=== PATIENT | male | born 1955 | race Caucasian/White ===

== ENCOUNTER 2024-02-11 09:19 | Outpatient (CLI) | payer MEDICARE, SELFPAY ==
--- NOTE | ~2024-02-11 | XR_ITS ---
3 VIEWS LUMBAR SPINE Ordering provider: Kiki Reyes NP History: . M54.41 - Lumbago with sciatica, right side . Comparison: None. FINDINGS: VERTEBRAL BODIES: No visible fracture or subluxation. Mild degenerative changes. DISK SPACES: Normal. SOFT TISSUES: Atherosclerotic changes of the aorta. IMPRESSION: No acute osseous abnormality lumbar spine. Reviewed, dictated and finalized at location A. 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
== END 2024-02-11 09:20 | disposition home or self-care (01) ==
LOC: GOSHIMG 09:19
PROVIDERS: PCP Internal Medicine; Visit Provider Nurse Practitioner
DX: M54.41 Lumbago with sciatica, right side (principal)
CPT/HCPCS: 72100

== ENCOUNTER 2024-02-15 13:15 | Emergency (ER) | payer MEDICARE, SELFPAY ==
--- NOTE | ~2024-02-15 | CT_ITS ---
EXAMINATION: CT lumbar spine wo con DATE: 02/15/2024 14:54 INDICATION: R SI pain, mild limbar pain . TECHNIQUE: Computed tomography (CT) of the lumbar spine was performed without intravenous contrast. A utomated exposure control and iterative reconstruction technique were employed. The dose-length produ ct was 677.97 mGy-cm. COMPARISON: X-ray L-spine 02/11/2024. FINDINGS: 5 nonrib-bearing lumbar-type vertebral bodies. Pedicles intact. Normal vertebral body align ment. Vertebral body heights preserved. Multilevel mild degenerative disc disease. Multilevel moderat e facet arthropathy. No severe central canal or neural foraminal narrowing. Atherosclerotic calcifica tions. Mild fusiform aneurysmal dilation of the abdominal aorta measuring up to 3.1 cm. Prostatomegal y with likely chronic urinary bladder wall thickening. Simple left renal cyst. IMPRESSION: No acute fracture or traumatic malalignment in the lumbar spine. Reviewed, dictated and finalized at location K. 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
[2024-02-15 13:24] VITALS: BP 147/84; PULSE 63; RESP 17; TEMP 36.5; O2SAT 99
--- NOTE | 2024-02-15 14:28 | ED_ITS ---
HPI - Back Pain/Injury General Chief Complaint: Back Pain/Injury Stated Complaint: back pain Time Seen by Provider: 02/15/24 14:04 History of Present Illness HPI Narrative: 69 y/o male presents to the emergency department for back pain for 5 weeks. Patient states 5 weeks ago he was doing yd work and getting in and out of the lawnmower several times. He felt pain in his low back in the right side of his back which is been persistent. states the pain is sharp and radiates down the right leg. He saw his PCP and lumbar x-rays performed which were unremarkable. He was given steroids which he states improved his pain significantly, however on the course of steroids was finished his pain returned. He has been using ice with some relief. States today while he was icing the area he sneezed his pain significantly worsened which caused him to come to the ED today. He denies bow el or bladder incontinence, urinary tension, fevers, abdominal pain, dysuria. has a history of hyperlipidemia. Related Data Allergies Allergy/AdvReac Type Severity Reaction Status Date / Time No Known Allergies Allergy Verified 02/04/24 14:25 Review of Systems Review of Systems: All systems reviewed & are unremarkable except as noted in HPI and below PMFSH Surgical History Surgical History H/O arthroscopy Right knee Family History Family History Grandparent Diabetes mellitus Social History Social History Social History: Caffeine- 2 sodas daily Smoking status: Never smoker Alcohol intake: current Drinks per week: 1 Alcohol use details: occasionally Substance use: never Lack of Transportation: No Lack of Food: Never True Current Housing: I Have Housing Concerned About Future Housing: No Difficulty Paying Gas/Electric Bills: No Difficulty Paying for Meds: No Currently Unemployed: No Education: High School Diploma/GED Difficulty w/ Childcare or Family Care: No Exam Narrative: GENERAL: Well-appearing, well-nourished, and in no acute distress. HEAD: Normocephalic, atraumatic. EYES: EOMI. ENT: Nares clear, no rhinorrhea or epistaxis. Mucous membranes moist. NECK: Supple. BACK: No significant thoracolumbar spinous tenderness to palpation no crepitus, step-offs or deformities, overlying skin changes. Point tenderness over the right SI with no overlying skin changes or crepitus. No tenderness over the piriformis. Positive straight leg raise. Sensation intact throughout. No saddle anesthesia. DP pulse 2 +. Full active and passive range of motion of leg without difficulty. Patient is ambulatory. CHEST: Clear to auscultation. No respiratory distress. HEART: Regular rate and rhythm. No murmur heard. Normal peripheral pulses. ABDOMEN: Soft, nontender, nondistended, normal active bowel sounds. EXTREMITIES: Normal range of motion. No edema. SKIN: Warm, dry, no rash. NEURO: No focal deficits. Alert and oriented x3 Course Vital Signs Vital signs: Vital Signs Temperature 97.7 F 02/15/24 13:24 Pulse Rate 63 02/15/24 13:24 Respiratory Rate 17 02/15/24 13:24 Blood Pressure 147/84 H 02/15/24 13:24 Pulse Oximetry 99 02/15/24 13:24 Temperature 97.7 F 02/15/24 13:24 Pulse Rate 63 02/15/24 13:24 Respiratory Rate 17 02/15/24 13:24 Blood Pressure 147/84 H 02/15/24 13:24 Pulse Oximetry 99 02/15/24 13:24 MDM - Back Pain/Injury MDM Narrative Medical decision making narrative: 69-year-old male with history of hyperlipidemia presents to emergency department for right low back pain with radiculopathy for the past 5 weeks of treatment yd work. See HPI for further history. Vitals are stable other than elevated blood pressure. He is afebrile and nontoxic appearing. Exam is significant for point tenderness over the right SI positive straight leg raise. He is neurovascularly intact without signs significant cord compression or cauda equina. CT lumbar shows no acute fracture traumatic malalignment in the lumbar spine, incidentally found a mild fusiform aneurysmal dilation of the abdominal aorta measuring 3.1 cm. Patient updated on workup. He received IM Decadron, Lidoderm patch, Flexeril and Tylenol with some improvement. Will provide these medications to the pharmacy encouraged close follow-up with his PCP. Advised him to continue his course of PT. Discussed strict ED return precautions. He is agreeable to plan verbalized understanding. Discharged in stable condition. Discharge Plan Discharge Clinical Impression: Acute lumbar radiculopathy AAA (abdominal aortic aneurysm) Qualifiers: Abdominal aorta location: unspecified Presence of rupture: without rupture Qualified Code(s): I71.40 - Abdominal aortic aneurysm, without rupture, unspecified Patient Disposition: Home, Self-Care Condition: Stable Instructions: Antibiotic Form, Nonruptured Abdominal Aortic Aneurysm (DC), Acute Low Back Pain (ED), Lumbar Radiculopathy (ED), Lower Back Exercises (ED) Additional Instructions: You were evaluated in the emergency department for back pain. The CT scan shows no acute findings to explain his back pain. Incidentally does reveal a dilated abdominal aorta as discussed. Please follow-up with her PCP regarding this. Please stay mobile and follow-up with her PCP regarding your back pain and PT. He has a medications as directed. Return to the emergency department if you develop fever, abdominal pain, numbness in her groin, lose control of her bowel or bladder, or other concerning symptoms. Prescriptions: New cyclobenzaprine 10 mg tablet 10 mg PO TID PRN (Reason: muscle spasm) Qty: 14 0RF lidocaine 5 % adhesive patch,medicated 1 patch topical DAILY Qty: 15 0RF Rx Instructions: leave on most painful area for up to 12 hrs. do not use more than 1 patch in a 24-hour period. methylprednisolone [Medrol (Eduard)] 4 mg tablets,dose pack See Rx Instructions PO .COMPLEX Qty: 21 0RF Rx Instructions: orally per package directions acetaminophen 500 mg capsule 1,000 mg PO Q6H PRN (Reason: pain) Qty: 30 0RF No Action methylprednisolone [Medrol (Eduard)] 4 mg tablets,dose pack See Rx Instructions PO PER PKG DIR Qty: 21 0RF Rx Instructions: PO PER PKG DIR atorvastatin 10 mg tablet 10 mg PO QHS Qty: 90 3RF Follow-up/Referrals: Romeo Lanza DO [Primary Care Provider] -
[2024-02-15] MEDS: dexAMETHasone SOD PHOS INJ 10 MG/ML 1 ML VIAL IM (15:06)
[2024-02-15] MEDS: LIDOCAINE 5% PATCH 1 PATCH TRANSDERM (15:06)
[2024-02-15] MEDS: ACETAMINOPHEN 500 MG TABLET 1000 MG PO (15:07)
[2024-02-15] MEDS: CYCLOBENZAPRINE HCL 10 MG TABLET PO (15:07)
[2024-02-15 16:06] VITALS: BP 165/85; PULSE 68; RESP 18; O2SAT 100
== END 2024-02-15 16:08 | disposition home or self-care (01) ==
PROVIDERS: Emergency Provider Physician Assistant; PCP Internal Medicine
DX: M54.16 Radiculopathy, lumbar region (principal)
CPT/HCPCS: 72131; 96372; 99284; A9270; J1100

== ENCOUNTER 2024-04-06 13:22 | Outpatient (CLI) | payer MEDICARE, SELFPAY ==
--- NOTE | ~2024-04-06 | MR_ITS ---
MRI of the lumbar spine Clinical History: Back pain, right sciatica Technique: Axial T2-weighted images, and sagittal T1-weighted, T2-weighted, and T2 fat-sat images wer e acquired. Findings: There is no fracture or sublocation of the lumbar spine. Vertebral bodies maintain normal h eight and alignment. No bone marrow signal abnormality seen. At L1-L2, there is no disc bulge or herniation. There is mild facet arthropathy. No spinal canal sten osis or neural foraminal narrowing. At L2-L3, there is no disc bulge or herniation. There is mild facet arthropathy. No central canal lenin nosis or neural foraminal narrowing. At L3-L4, there is minimal disc bulge with moderate facet arthropathy. No central canal stenosis. The re is mild right neural foraminal narrowing. Left neural foramen preserved. At L4-L5, there is mild disc narrowing. There is minimal disc bulge with moderate to severe facet art hropathy. No central canal stenosis. There is mild bilateral neural foraminal narrowing. At L5-S1, there is advanced facet arthropathy. No disc bulge or herniation. No spinal canal stenosis or definite neural foraminal narrowing. Paravertebral soft tissues are unremarkable. Impression: Mild degenerative spondylosis overall, as detailed above. Reviewed, dictated and finalized at [facility]. 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
== END 2024-04-06 13:23 | disposition home or self-care (01) ==
LOC: GOSHIMG 13:22
PROVIDERS: PCP Nurse Practitioner; Visit Provider Nurse Practitioner
DX: M47.816 Spondylosis without myelopathy or radiculopathy, lumbar region (principal); M54.41 Lumbago with sciatica, right side
CPT/HCPCS: 72148

== ENCOUNTER 2024-05-25 14:43 | Outpatient (CLI) | payer MEDICARE, SELFPAY ==
--- NOTE | ~2024-05-25 | MR_ITS ---
EXAMINATION: MR hip RT wo con DATE: 05/25/2024 15:47 INDICATION: Right hip pain. TECHNIQUE: Magnetic resonance imaging (MRI) of the right hip was performed without intravenous contra st. COMPARISON: None FINDINGS: Bones/cartilage: Alignment is normal. No fracture. The femoral head/neck morphologies are normal. The hip joints demon strate tiny osteophytes. Small [id number] images of right hip demonstrate shallow partial-thicknes s cartilage loss. Labrum: There is a tear of the right acetabular labrum. Fluid: There is no hip joint effusion. There is a physiologic volume of fluid in the trochanteric bursae. Soft tissues: There is mild tendinopathy of the hamstring origins bilaterally. The gluteus minimus and gluteus medi us tendons are normal. The iliopsoas tendons are normal. IMPRESSION: 1. Mild osteoarthritis of the hips. Reviewed, dictated and finalized at location B.
== END 2024-05-25 14:44 | disposition home or self-care (01) ==
LOC: GOSHIMG 14:44
PROVIDERS: PCP Nurse Practitioner; Visit Provider Nurse Practitioner Family
DX: M16.0 Bilateral primary osteoarthritis of hip (principal); M53.3 Sacrococcygeal disorders, not elsewhere classified
CPT/HCPCS: 73721

== ENCOUNTER 2025-02-18 01:30 | Day surgery (SDC) | payer MEDICARE, SELFPAY ==
[2025-01-28 15:26] VITALS: BMI 30.5
[2025-02-18 06:44] VITALS: BP 130/64; PULSE 56; RESP 20; TEMP 36.1; O2SAT 99; BMI 30.3
[2025-02-18] MEDS: LACTATED RINGERS 1,000 ML 150 ML IV CONT (06:47)
--- NOTE | 2025-02-18 07:16 | WPDANESEPPF ---
Anes - Initial Pre Proc Eval Procedure: Operation Date: 02/18/25 08:00 Proposed Procedures p Screening Colonoscopy - Benji Caro MD Date/Time: 02/18/25 07:16 Surgeon: Benji Caro MD Pre Op Diagnosis: Encounter for screening for malignant neoplasm of Patient Data Age: 70 Gender: M Height: 1.83 m Weight: 101.5 kg Last Vital Signs Temp 36.1 C L 02/18/25 06:44 Pulse 56 L 02/18/25 06:44 Resp 20 02/18/25 06:44 BP 130/64 02/18/25 06:44 Pulse Ox 99 02/18/25 06:44 O2 Del Method Room Air 02/18/25 06:44 Allergies Allergy/AdvReac Type Severity Reaction Status Date / Time No Known Allergies Allergy Verified 02/18/25 06:42 Home Medications ?Medication ?Instructions ?Recorded ?Confirmed ?Type acetaminophen 500 mg capsule 1,000 mg (2 x 500 mg) PO Q6H PRN 02/15/24 01/28/25 Rx pain #30 caps atorvastatin 10 mg tablet 10 mg PO QHS #90 tabs 08/05/24 02/18/25 Rx Patient hx anesthesia problems: none Family hx anesthesia problems: none Results Review: All pre-operative results and documents have been reviewed as part of the pre-operative evaluation. [facility] Surgical History Surgical History H/O arthroscopy Right knee Family History Family History Grandparent Diabetes mellitus Social History Social History Social History: Caffeine- 2 sodas daily Smoking packs per day: 1 Smoking cigarettes per day: 20.0 Years smoked: 25 Smoking pack-years: 25.00 Smoking status: Former smoker Alcohol intake: current Drinks per week: 1 Alcohol use details: occasionally Substance use: never Substance use type: does not use Lack of Transportation: No Lack of Food: Never True Current Housing: I Have Housing Concerned About Future Housing: No Difficulty Paying Gas/Electric Bills: No Difficulty Paying for Meds: No Currently Unemployed: No Education: High School Diploma/GED Difficulty w/ Childcare or Family Care: No Living arrangements: with family Spiritual care concerns: No Anes - Eval Final PreProcedure Day of Procedure 02/18/25 07:16 Patient weight: overweight Heart: regular rate and rhythm Lungs: clear to auscultation Airway: Mallampati scale class II Neurological: alert and oriented Last oral intake: >/= 8 hours ASA classification: II Emergent: no Anesthetic plan: proceed Anesthesia type and monitoring: general GIVS and standard monitoring Results Review: All pre-operative results and documents have been reviewed as part of the pre-operative evaluation. Informed Consent: The patient's anesthetic plan and its attendant risks and benefits were discussed with the patient/family/POA. Questions were solicited and answers provided to the satisfaction of the patient/family/POA.
--- NOTE | 2025-02-18 07:22 | PM.IMHP2 ---
H&P: HPI History of Present Illness Date/Time: 02/18/25 07:22 Chief Complaint: Screening colonoscopy Narrative: This is the patient's 2nd screening colonoscopy. There are no GI symptoms and there is no family history of colorectal cancer. Review of Systems Review of Systems: All systems reviewed & are unremarkable except as noted in HPI and below PMFSH Surgical History Surgical History H/O arthroscopy Right knee Family History Family History Grandparent Diabetes mellitus Social History Social History Social History: Caffeine- 2 sodas daily Smoking packs per day: 1 Smoking cigarettes per day: 20.0 Years smoked: 25 Smoking pack-years: 25.00 Smoking status: Former smoker Alcohol intake: current Drinks per week: 1 Alcohol use details: occasionally Substance use: never Substance use type: does not use Lack of Transportation: No Lack of Food: Never True Current Housing: I Have Housing Concerned About Future Housing: No Difficulty Paying Gas/Electric Bills: No Difficulty Paying for Meds: No Currently Unemployed: No Education: High School Diploma/GED Difficulty w/ Childcare or Family Care: No Living arrangements: with family Spiritual care concerns: No Meds Home Medications and Allergies Home Medications ?Medication ?Instructions ?Recorded ?Confirmed ?Type acetaminophen 500 mg capsule 1,000 mg (2 x 500 mg) PO Q6H PRN 02/15/24 01/28/25 Rx pain #30 caps atorvastatin 10 mg tablet 10 mg PO QHS #90 tabs 08/05/24 02/18/25 Rx Allergies Allergy/AdvReac Type Severity Reaction Status Date / Time No Known Allergies Allergy Verified 02/18/25 06:42 Vital Signs Vital Signs - 24 hr 02/18/25 06:44 Temperature 96.9 F L Pulse Rate 56 L Respiratory Rate 20 Blood Pressure 130/64 Pulse Oximetry 99 Oxygen Delivery Room Air Exam Const: General: cooperative and healthy appearing Resp: Effort & Inspection: normal respiratory effort and able to speak in complete sentences Auscultation: clear to auscultation bilaterally Cardio: Rate: regular rate Rhythm: regular rhythm GI: Inspection: normal to inspection GI Palp: No No hepatosplenomegaly present Auscultation: normal bowel sounds Rectal Exam: deferred Skin: General skin exam: normal color Psych: Appearance: grossly normal Mental Status: mental status grossly normal Assessment and Plan Assessment and plan (1) Screening for colon cancer: Code(s): Z12.11 - Encounter for screening for malignant neoplasm of colon Status: Acute Assessment and Plan: The patient is deemed a good candidate for the procedure. Consent signed. Will proceed.
--- NOTE | 2025-02-18 08:24 | S_PTH ---
PATIENT: Alexis Richter LOC: [facility]#:[id number] AGE/SX: 70/M ROOM: RE02/18/[address]: Benji Caro MD : 1955 BED: DIS: 02/18/2025 SPEC #: [id number] RECD: 02/18/25 09:03 STATUS: DEREK REPaulo #: [id number] MILAGROS: 02/18/25 08:[address]: Benji Caro DEPT: [facility] RECD BY: Melissa Malcolm ENTERED: 02/18/25 09:04 SP TYPE: Surgical OTHR DR: Kiki Reyes, BERRY Tissues: A - Colon Polypectomy B - Colon Polypectomy C - Colon Polypectomy Procedures: Hematoxylin and Eosin Stain Gross and Microscopic Level 4
[2025-02-18 08:27] VITALS: BP 120/81; PULSE 67; RESP 17; O2SAT 95
[2025-02-18 08:37] VITALS: BP 113/86; PULSE 64; RESP 18; O2SAT 98
[2025-02-18 08:47] VITALS: BP 129/82; PULSE 60; RESP 16; O2SAT 99
== END 2025-02-18 08:57 | disposition home or self-care (01) ==
PROVIDERS: PCP Nurse Practitioner; Referring Provider Nurse Practitioner; Visit Provider Internal Medicine Gastroenterology
PROC: 0DJD8ZZ Inspection of Lower Intestinal Tract, Via Natural or Artificial Opening Endoscopic (ICD-10-PCS; CPT 45378; principal; 2025-02-18 08:00)
DX: Z12.11 Encounter for screening for malignant neoplasm of colon (principal); D12.3 Benign neoplasm of transverse colon; D12.4 Benign neoplasm of descending colon; K63.5 Polyp of colon; K62.1 Rectal polyp; K57.30 Diverticulosis of large intestine without perforation or abscess without bleeding; K64.8 Other hemorrhoids; Z87.891 Personal history of nicotine dependence
CPT/HCPCS: 45385; 88305; J2704; J7120